=== PATIENT | female | born 1980 | race Caucasian/White ===

== ENCOUNTER 2019-03-17 17:03 | Emergency (ER) | payer OTHER ==
[~2019-03-17] VITALS: Ht 152.4 cm; Wt 75.7 kg
[2019-03-17 17:17] VITALS: BP 146/88
--- NOTE | 2019-03-17 17:25 | NUR ---
DR GALLARDO AWARE OF BLOOD SUGAR. OKAY TO WAIT IN LOBBY FOR BED.
[2019-03-17 18:07] LABS: HEMATOCRIT 34.9 % (36-48); HEMOGLOBIN 10.6 g/dL (12.0-16.0); MEAN CORPUSCULAR HEMOGLOBIN 20 pg (27-31); MEAN CORPUSCULAR HGB CONC 30 g/dL (33-37); MEAN CORPUSCULAR VOLUME 64.9 fL (80-94); PLATELET COUNT (AUTO) 334 K/uL (140-450); RED BLOOD CELL COUNT(AUTO) 5.38 MIL/uL (4.20-5.40); WHITE BLOOD COUNT (AUTO) 6.8 K/uL (4.8-10.8)
--- NOTE | 2019-03-17 18:35 | NUR ---
PATIENT AMBULATED TO BED 07
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
[2019-03-17 19:07] VITALS: BP 111/64
--- NOTE | 2019-03-17 19:08 | NUR ---
Pt report given to DAMION LIRA. Transfer of care at this time.
[2019-03-17 19:10] LABS: ALBUMIN 3.4 g/dL (3.4-5.0); ANION GAP 15.7 (8-16); ASPARTATE AMINOTRANSFERASE 204 U/L (15-37); CARBON DIOXIDE 24.2 mmol/L (21-32); CHLORIDE 99 mmol/L (98-107); CREATININE 0.9 mg/dL (0.6-1.3); GFR ARICAN-AMERICAN 89 mL/min (>90); POTASSIUM 3.9 mmol/L (3.5-5.1); SODIUM SERUM 135 mmol/L (136-145); TOTAL BILIRUBIN 0.3 mg/dL (0.0-1.0); UREA NITROGEN, BLOOD 8 mg/dL (7-18)
--- NOTE | 2019-03-17 19:10 | NUR ---
RECEIVED BEDSIDE REPORT FROM PANKAJ NUNEZ. ASSUMED CARE AT THIS TIME.
[2019-03-17 19:15] LABS: GLUCOSE 444 mg/dL (74-106)
[2019-03-17] MEDS ORDERED: INSULIN REGULAR, HUMAN 100 UNIT/ML VIAL IVP ONE (19:20)
[2019-03-17] MEDS ORDERED: NACL 0.9% 1,000 ML IV ONE (19:20)
[2019-03-17 19:43] LABS: ACETONE, SERUM NEGATIVE (NEGATIVE)
[2019-03-17 19:44] LABS: LYMPHOCYTES % (MANUAL) 38 % (20-46); MONOCYTES % (MANUAL) 3 % (5-12)
[2019-03-17 19:45] LABS: BASOPHILS % (MANUAL) 0 % (0-2); EOSINOPHILS % (MANUAL) 1 % (0-4)
--- NOTE | 2019-03-17 19:45 | NUR ---
PT LAYING IN BED UPRIGHT. BEDRAILX1 UP. DAUGHTER AT BEDSIDE. WILL CONTINUE TO MONITOR.
--- NOTE | 2019-03-17 20:56 | NUR ---
PT BLOOD SUGAR DECREASED TO 215. DR. ANTHONY MADE AWARE
--- NOTE | 2019-03-17 21:13 | NUR ---
Patient discharged with v/s stable. Written and verbal after care instructions given and explained. Patient alert, oriented and verbalized understanding of instructions. Ambulatory with steady gait. All questions addressed prior to discharge. ID band removed. Patient advised to follow up with PMD. Rx of metformin given. Patient educated on indication of medication including possible reaction and side effects. Opportunity to ask questions provided and answered.
[2019-03-17 22:51] LABS: APPEARANCE,URINE CLEAR (CLEAR); BILIRUBIN,URINE NEGATIVE (NEGATIVE); BLOOD, URINE NEGATIVE (NEGATIVE); COLOR,URINE YELLOW (YELLOW); LEUKOCYTE ESTERASE ,URINE 1+ (NEGATIVE); NITRITE, URINE NEGATIVE (NEGATIVE); UGLUCOSE 3+ (NEGATIVE)
[2019-03-17 23:21] LABS: RBC,URINE NONE SEEN /HPF (0-5)
--- NOTE | 2019-03-20 15:53 | NUR ---
LATE ENTRY- DR DANIELS AWARE OF POSITIVE URINE CULTURE. NO NEW ORDERS RECIEVED.
== END 2019-03-17 21:13 | disposition home or self-care (01) ==
LOC: MED 17:03
DX: E11.65 Type 2 diabetes mellitus with hyperglycemia (principal); E86.0 Dehydration; R35.0 Frequency of micturition
CPT/HCPCS: 36415; 80053; 81001; 82009; 82948; 83036; 85025; 87086; 87186; 96361; 96374; 99283; J1815; J7030

== ENCOUNTER 2020-02-08 09:05 | Emergency (ER) | payer OTHER ==
[~2020-02-08] VITALS: Ht 154.9 cm; Wt 77.6 kg
[2020-02-08 09:17] VITALS: BP 130/86
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
[2020-02-08] MEDS ORDERED: ACETAMINOPHEN 325 MG TAB PO ONE (10:00)
[2020-02-08 10:12] VITALS: BP 126/82
== END 2020-02-08 10:13 | disposition home or self-care (01) ==
LOC: MED 09:05
DX: R51.9 Headache, unspecified (principal); E11.9 Type 2 diabetes mellitus without complications; V49.9XXA Car occupant (driver) (passenger) injured in unspecified traffic accident, initial encounter; Y93.89 Activity, other specified; Y92.89 Other specified places as the place of occurrence of the external cause; Y99.8 Other external cause status
CPT/HCPCS: 99282

== ENCOUNTER 2020-12-08 13:37 | Emergency (ER) | payer OTHER ==
[~2020-12-08] VITALS: Ht 152.4 cm; Wt 73.9 kg
[2020-12-08 14:00] VITALS: BP 144/84
--- NOTE | 2020-12-08 14:45 | NUR ---
RECEIVED FROM [employer] STATING THAT SHE IS AWARE OF HAVING AN ELEVATED BLOOD SUGAR AFTER RECENTLY RUNNING OUT OF METFORMIN, SHE HAD NO REFILLS APPROVED AT THE PHARMACY SO SHE CALLED HER MD OFFICE, MD REFERRED TO ER FOR TREATMENT AND REFILL. PATIENT IS IN BED 12, PLACED ON MONITOR, IV ACCESS OBTAINED, LABS DRAWN. PATIENT IS AWAKE ALERT, RESP EVEN AND UNLABORED SKIN IS WARM AND DRY, DENIES PAIN DIZZINESS NAUSEA VOMITING OR DIARRHEA BED IS IN LOW LOCKED POSITION WITH ONE SIDERAIL UP FOR SAFETY.
[2020-12-08] MEDS ORDERED: metFORMIN 500 MG TAB PO STA (15:00)
[2020-12-08 15:09] LABS: BASOPHILS # (AUTO) 0.1 K/uL (0.00-0.22); BASOPHILS % (AUTO) 0.7 % (0.0-2.0); EOSINOPHILS # (AUTO) 0.1 K/uL (0-0.4); EOSINOPHILS % (AUTO) 2.1 % (0.0-4.0); HEMATOCRIT 33.8 % (36-48); HEMOGLOBIN 10.3 g/dL (12.0-16.0); LYMPHOCYTES # (AUTO) 2.5 K/uL (2.5-16.5); LYMPHOCYTES % (AUTO) 36.4 % (20.5-51.1); MEAN CORPUSCULAR HEMOGLOBIN 19 pg (27-31); MEAN CORPUSCULAR HGB CONC 31 g/dL (33-37); MEAN CORPUSCULAR VOLUME 61.8 fL (80-94); MONOCYTES # (AUTO) 0.5 K/uL (0.8-1.0); NEUTROPHILS # (AUTO) 3.7 K/uL (1.8-7.7); NEUTROPHILS % (AUTO) 53.8 % (42.2-75.2); PLATELET COUNT (AUTO) 314 K/uL (140-450); RED BLOOD CELL COUNT(AUTO) 5.46 MIL/uL (4.20-5.40); RED CELL DISTRIBUTION WIDTH 21.3 % (11.6-13.7); WHITE BLOOD COUNT (AUTO) 6.9 K/uL (4.8-10.8)
[2020-12-08 15:54] LABS: ALBUMIN 3.5 g/dL (3.4-5.0); ANION GAP 13.5 (8-16); CREATININE 0.7 mg/dL (0.6-1.3); POTASSIUM 3.5 mmol/L (3.5-5.1); TOTAL BILIRUBIN 0.4 mg/dL (0.0-1.0)
[2020-12-08] MEDS ORDERED: METF500T PO (16:02)
[2020-12-08 16:32] VITALS: BP 122/80
--- NOTE | 2020-12-08 16:33 | NUR ---
Patient discharged with v/s stable. Written and verbal after care instructions given HYPERGLYCEMIA and explained. Patient alert, oriented and verbalized understanding of instructions. Ambulatory with steady gait. All questions addressed prior to discharge. ID band removed. Patient advised to follow up with PMD. Rx of METFORMIN 500MG PO given. Patient educated on indication of medication including possible reaction and side effects. Opportunity to ask questions provided and answered.
[2020-12-08 16:48] LABS: APPEARANCE,URINE SL CLOUDY (CLEAR); BILIRUBIN,URINE NEGATIVE (NEGATIVE); BLOOD, URINE TRACE-I (NEGATIVE); COLOR,URINE YELLOW (YELLOW); LEUKOCYTE ESTERASE ,URINE TRACE (NEGATIVE); NITRITE, URINE NEGATIVE (NEGATIVE); PH,URINE 5.5 (5.0-9.0); UGLUCOSE 3+ (NEGATIVE)
== END 2020-12-08 16:33 | disposition home or self-care (01) ==
LOC: MED 13:37
DX: E11.65 Type 2 diabetes mellitus with hyperglycemia (principal); E86.0 Dehydration
CPT/HCPCS: 36415; 80053; 81001; 81025; 82009; 82948; 83036; 83605; 85025; 87086; 99283

== ENCOUNTER 2021-10-10 14:31 | Emergency (ER) | payer OTHER ==
[~2021-10-10] VITALS: Ht 152.4 cm; Wt 74.8 kg
[~2021-10-10 14:31] MED LIST: METF-346 PO
[2021-10-10 15:19] VITALS: BP 120/70
[2021-10-10] MEDS ORDERED: IBUP-2213 PO (15:56)
--- NOTE | 2021-10-10 16:30 | NUR ---
Patient discharged with v/s stable. Written and verbal after care instructions given and explained. Patient alert, oriented and verbalized understanding of instructions. Ambulatory with steady gait. All questions addressed prior to discharge. ID band removed. Patient advised to follow up with PMD. Rx of Ibuprofen given. Patient educated on indication of medication including possible reaction and side effects. Opportunity to ask questions provided and answered. Work note provided.
--- NOTE | 2021-10-10 16:30 | NUR ---
NO NURSING INTERVENTIONS PERFORMED
== END 2021-10-10 16:30 | disposition home or self-care (01) ==
LOC: MED 14:31
DX: M79.651 Pain in right thigh (principal); E11.9 Type 2 diabetes mellitus without complications; Z79.84 Long term (current) use of oral hypoglycemic drugs; Z79.899 Other long term (current) drug therapy
CPT/HCPCS: 99282

== ENCOUNTER 2022-12-20 13:36 | Inpatient (IN) | payer OTHER ==
[~2022-12-20] VITALS: Ht 152.4 cm; Wt 79.0 kg
[~2022-12-20 13:36] MED LIST changes: +IBUP-2213 PO
[2022-12-20 13:53] VITALS: BP 134/86; PULSE 87; RESP 20; TEMP 98.7; O2SAT 98
[2022-12-20 14:28] VITALS: O2SAT 98
[2022-12-20] MEDS ORDERED: DICYCLOMINE HCL LIQUID 20 MG, ALUMINUM HYD/MAG/SIMETHICONE 30 ML, LIDOCAINE VISCOUS 2% ... PO ONE ×3 (14:35)
[2022-12-20] MEDS ORDERED: ONDANSETRON 4 MG ODT PO ONE (14:35)
[2022-12-20] MEDS ORDERED: ALUMINUM HYD/MAG/SIMETHICONE 30 ML UDC ONE (14:41)
[2022-12-20] MEDS ORDERED: DICYCLOMINE HCL LIQUID 10 MG/5 ML UDC ONE (14:42)
[2022-12-20 14:57] LABS: HEMATOCRIT 35.7 % (36-48); HEMOGLOBIN 11.2 g/dL (12.0-16.0); MEAN CORPUSCULAR HEMOGLOBIN 21 pg (27-31); MEAN CORPUSCULAR HGB CONC 31 g/dL (33-37); MEAN CORPUSCULAR VOLUME 65.6 fL (80-94); PLATELET COUNT (AUTO) 385 K/uL (140-450); RED BLOOD CELL COUNT(AUTO) 5.43 MIL/uL (4.20-5.40); RED CELL DISTRIBUTION WIDTH 19.8 % (11.6-13.7); WHITE BLOOD COUNT (AUTO) 15.4 K/uL (4.8-10.8)
[2022-12-20 15:17] LABS: ALBUMIN 3.5 g/dL (3.4-5.0); ANION GAP 14.5 (8-16); CALCIUM 8.7 mg/dL (8.5-10.1); CARBON DIOXIDE 27.3 mmol/L (21-32); CREATININE 0.9 mg/dL (0.6-1.3); POTASSIUM 3.8 mmol/L (3.5-5.1); TOTAL BILIRUBIN 0.6 mg/dL (0.0-1.0); TOTAL PROTEIN, SERUM 7.8 g/dL (6.4-8.2)
[2022-12-20 15:23] LABS: BASOPHILS % (MANUAL) 0 % (0-2); EOSINOPHILS % (MANUAL) 0 % (0-4); LYMPHOCYTES % (MANUAL) 8 % (20-46); MONOCYTES % (MANUAL) 2 % (5-12)
[2022-12-20 15:24] LABS: HYPOCHROMASIA 1+
[2022-12-20 16:29] VITALS: O2SAT 98
[2022-12-20] MEDS ORDERED: MORPHINE SULFATE 4 MG/ML SYR IM ONE (17:15)
[2022-12-20] MEDS ORDERED: HYDROcodone/APAP 5/325 MG 1 TAB TAB PO ONE (17:15)
[2022-12-20] MEDS ORDERED: ACET-10509 PO (17:38)
[2022-12-20] MEDS ORDERED: FAMO-90 PO (17:38)
[2022-12-20] MEDS ORDERED: ONDA-188 PO (17:38)
[2022-12-20] MEDS ORDERED: IBUP-1842 PO (17:38)
[2022-12-20] MEDS ORDERED: metroNIDAZOLE 500 MG/NS PREMIX 100 ML IV ONE (18:20)
[2022-12-20] MEDS ORDERED: NACL 0.9% 1,000 ML IV ONE ×2 (18:25)
[2022-12-20 18:44] VITALS: O2SAT 98
[2022-12-20] MEDS ORDERED: cefTRIAXone 1,000 MG VIAL ONE (18:55)
[2022-12-20] MEDS ORDERED: ATOR20TA40 PO (19:03)
[2022-12-20 19:18] LABS: LACTIC ACID 1.9 mmol/L (0.4-2.0)
[2022-12-20] MEDS ORDERED: KCL 20 MEQ IN 100 mL PREMIX 200 ML IV PRN (21:20)
[2022-12-20] MEDS ORDERED: HYDROcodone/APAP 5/325 MG 1 TAB TAB PO PRN (21:20)
[2022-12-20] MEDS ORDERED: MAG SULF 2000 MG/WATER PREMIX 50 ML IV PRN (21:20)
[2022-12-20] MEDS ORDERED: ACETAMINOPHEN 325 MG TAB PO PRN (21:20)
[2022-12-20] MEDS: MORPHINE SULFATE 4 MG/ML SYR IVP PRN (22:55)
[2022-12-20] MEDS: NACL 0.9% 1,000 ML IV SCH (22:57)
[2022-12-21] MEDS ORDERED: PIPERACILLIN/TAZOBACTAM 3.375 GM VIAL IV ONE ×4 (00:45→17:58)
[2022-12-21 01:00] VITALS: O2SAT 99
[2022-12-21] MEDS: PIPERACILLIN/TAZOBACTAM 3.375 GM in DEXTROSE 5% 50 ML IV SCH ×4 (01:00→18:03)
[2022-12-21] MEDS ORDERED: METF-346 PO (04:58)
[2022-12-21] MEDS ORDERED: GLIP10TE PO (04:58)
[2022-12-21 07:05] LABS: ALBUMIN 2.9 g/dL (3.4-5.0); ANION GAP 12.4 (8-16); CALCIUM 7.7 mg/dL (8.5-10.1); CREATININE 0.7 mg/dL (0.6-1.3); MAGNESIUM 1.6 mg/dL (1.8-2.4); POTASSIUM 3.4 mmol/L (3.5-5.1); TOTAL BILIRUBIN 0.8 mg/dL (0.0-1.0); TOTAL PROTEIN, SERUM 6.9 g/dL (6.4-8.2)
[2022-12-21] MEDS: POTASSIUM CHLORIDE 10 MEQ TABER PO PRN (08:07)
[2022-12-21] MEDS: MAGNESIUM OXIDE 400 MG TAB PO PRN (08:07)
[2022-12-21] MEDS: NACL 0.9% 1,000 ML IV SCH ×2 (12:12→22:58)
[2022-12-21 13:38] LABS: BASOPHILS # (AUTO) 0.1 K/uL (0.00-0.22); BASOPHILS % (AUTO) 0.7 % (0.0-2.0); EOSINOPHILS % (AUTO) 0.2 % (0.0-4.0); HEMATOCRIT 33.7 % (36-48); HEMOGLOBIN 10.3 g/dL (12.0-16.0); LYMPHOCYTES # (AUTO) 1.6 K/uL (2.5-16.5); LYMPHOCYTES % (AUTO) 8.9 % (20.5-51.1); MEAN CORPUSCULAR HEMOGLOBIN 20 pg (27-31); MEAN CORPUSCULAR HGB CONC 31 g/dL (33-37); MEAN CORPUSCULAR VOLUME 66.5 fL (80-94); MONOCYTES # (AUTO) 1.2 K/uL (0.8-1.0); MONOCYTES % (AUTO) 6.9 % (1.7-9.3); NEUTROPHILS # (AUTO) 14.9 K/uL (1.8-7.7); NEUTROPHILS % (AUTO) 83.3 % (42.2-75.2); PLATELET COUNT (AUTO) 362 K/uL (140-450); RED BLOOD CELL COUNT(AUTO) 5.06 MIL/uL (4.20-5.40); RED CELL DISTRIBUTION WIDTH 19.5 % (11.6-13.7); WHITE BLOOD COUNT (AUTO) 17.9 K/uL (4.8-10.8)
[2022-12-21 21:25] VITALS: BP 130/73; PULSE 97; RESP 18; TEMP 98.9; O2SAT 96; O2SAT 97
[2022-12-22] MEDS ORDERED: PIPERACILLIN/TAZOBACTAM 3.375 GM VIAL IV ONE ×2 (00:43→05:23)
[2022-12-22] MEDS: PIPERACILLIN/TAZOBACTAM 3.375 GM in DEXTROSE 5% 50 ML IV SCH ×5 (00:50→23:57)
[2022-12-22 04:00] VITALS: BP 121/66; RESP 18; TEMP 98.2; O2SAT 97
[2022-12-22] MEDS: MAGNESIUM OXIDE 400 MG TAB PO PRN (04:03)
[2022-12-22] MEDS: POTASSIUM CHLORIDE 10 MEQ TABER PO PRN (04:04)
[2022-12-22] MEDS: NACL 0.9% 1,000 ML IV SCH ×2 (05:14→21:30)
[2022-12-22 06:41] LABS: BASOPHILS % (AUTO) 0.3 % (0.0-2.0); EOSINOPHILS # (AUTO) 0.1 K/uL (0-0.4); EOSINOPHILS % (AUTO) 0.4 % (0.0-4.0); HEMATOCRIT 31.1 % (36-48); HEMOGLOBIN 9.8 g/dL (12.0-16.0); LYMPHOCYTES # (AUTO) 2.1 K/uL (2.5-16.5); LYMPHOCYTES % (AUTO) 12.6 % (20.5-51.1); MEAN CORPUSCULAR HEMOGLOBIN 21 pg (27-31); MEAN CORPUSCULAR HGB CONC 32 g/dL (33-37); MEAN CORPUSCULAR VOLUME 65.2 fL (80-94); MONOCYTES # (AUTO) 1.1 K/uL (0.8-1.0); MONOCYTES % (AUTO) 6.7 % (1.7-9.3); NEUTROPHILS # (AUTO) 13.3 K/uL (1.8-7.7); PLATELET COUNT (AUTO) 347 K/uL (140-450); RED BLOOD CELL COUNT(AUTO) 4.78 MIL/uL (4.20-5.40); WHITE BLOOD COUNT (AUTO) 16.6 K/uL (4.8-10.8)
[2022-12-22 07:06] LABS: ALBUMIN 2.6 g/dL (3.4-5.0); ANION GAP 12.4 (8-16); CALCIUM 8.2 mg/dL (8.5-10.1); CARBON DIOXIDE 23.6 mmol/L (21-32); CREATININE 0.6 mg/dL (0.6-1.3); MAGNESIUM 1.9 mg/dL (1.8-2.4); TOTAL BILIRUBIN 0.9 mg/dL (0.0-1.0); TOTAL PROTEIN, SERUM 7.1 g/dL (6.4-8.2)
[2022-12-22 08:00] VITALS: BP 133/72; PULSE 92; RESP 16; TEMP 97.8; O2SAT 98
[2022-12-22] MEDS ORDERED: LIDOCAINE/EPI MPF 1%1:200000 30 ML VIAL INJ ONE (12:07)
[2022-12-22] MEDS ORDERED: fentaNYL citrate 0.05 MG/ML VIAL ONE (12:09)
[2022-12-22] MEDS ORDERED: SEVOFLURANE 250 ML BTL INH ONE (12:09)
[2022-12-22] MEDS ORDERED: ROCURONIUM 50 MG/5 ML VIAL IV ONE (12:53)
[2022-12-22] MEDS ORDERED: PROPOFOL 200 MG/20 ML VIAL IV ONE (12:53)
[2022-12-22] MEDS ORDERED: SUCCINYLCHOLINE CHLORIDE 200 MG/10 ML VIAL IVP ONE (12:54)
[2022-12-22] MEDS ORDERED: ONDANSETRON 4 MG/2 ML VIAL ONE (12:55)
[2022-12-22] MEDS ORDERED: KETOROLAC 30 MG/ML VIAL ONE (12:55)
[2022-12-22] MEDS ORDERED: NEOSTIGMINE 1:1000 10 MG/10 ML VIAL ONE (13:24)
[2022-12-22] MEDS ORDERED: GLYCOPYRROLATE 0.2 MG/ML VIAL ONE ×5 (13:24)
[2022-12-22] MEDS: LACTATED RINGERS 1,000 ML IV SCH ×2 (13:40→23:18)
[2022-12-22] MEDS ORDERED: LABETALOL 20 MG/4 ML VIAL IVP PRN (13:40)
[2022-12-22] MEDS ORDERED: METOCLOPRAMIDE 10 MG/2 ML INJ VIAL IVP PRN (13:40)
[2022-12-22] MEDS ORDERED: hydrALAZINE 20 MG/ML VIAL IVP PRN (13:41)
[2022-12-22] MEDS: HYDROmorphone 1 MG/ML AMP IVP PRN ×3 (13:55→14:25)
[2022-12-22] MEDS ORDERED: HYDROmorphone PFS 2 MG/ML SYR ONE (14:01)
[2022-12-22 14:33] VITALS: PULSE 92; RESP 16; O2SAT 98
[2022-12-22 16:00] VITALS: BP 94/54; PULSE 98; RESP 18; TEMP 97.9; O2SAT 92
[2022-12-23] VITALS: BP 110/55; PULSE 88; RESP 18; TEMP 97.5; O2SAT 95
[2022-12-23] MEDS: PIPERACILLIN/TAZOBACTAM 3.375 GM in DEXTROSE 5% 50 ML IV SCH ×4 (06:24→23:30)
[2022-12-23 07:10] LABS: ANION GAP 12.2 (8-16); CALCIUM 7.6 mg/dL (8.5-10.1); CARBON DIOXIDE 22.3 mmol/L (21-32); CREATININE 0.5 mg/dL (0.6-1.3); POTASSIUM 3.5 mmol/L (3.5-5.1)
[2022-12-23 07:44] LABS: ALBUMIN 2.1 g/dL (3.4-5.0); CALCIUM 7.6 mg/dL (8.5-10.1); CARBON DIOXIDE 21.4 mmol/L (21-32); CREATININE 0.6 mg/dL (0.6-1.3); POTASSIUM 3.4 mmol/L (3.5-5.1); TOTAL BILIRUBIN 0.5 mg/dL (0.0-1.0); TOTAL PROTEIN, SERUM 6.3 g/dL (6.4-8.2)
[2022-12-23 08:00] VITALS: BP 117/69; PULSE 94; RESP 16; TEMP 97.2; O2SAT 96
[2022-12-23] MEDS: POTASSIUM CHLORIDE 10 MEQ TABER PO PRN (09:33)
[2022-12-23 10:50] LABS: BASOPHILS # (AUTO) 0.1 K/uL (0.00-0.22); BASOPHILS % (AUTO) 1.2 % (0.0-2.0); EOSINOPHILS # (AUTO) 0.1 K/uL (0-0.4); EOSINOPHILS % (AUTO) 1.3 % (0.0-4.0); HEMOGLOBIN 8.6 g/dL (12.0-16.0); LYMPHOCYTES # (AUTO) 1.6 K/uL (2.5-16.5); LYMPHOCYTES % (AUTO) 17.3 % (20.5-51.1); MEAN CORPUSCULAR HEMOGLOBIN 21 pg (27-31); MEAN CORPUSCULAR HGB CONC 31 g/dL (33-37); MONOCYTES # (AUTO) 0.6 K/uL (0.8-1.0); MONOCYTES % (AUTO) 6.2 % (1.7-9.3); NEUTROPHILS # (AUTO) 6.9 K/uL (1.8-7.7); PLATELET COUNT (AUTO) 330 K/uL (140-450); RED BLOOD CELL COUNT(AUTO) 4.18 MIL/uL (4.20-5.40); WHITE BLOOD COUNT (AUTO) 9.3 K/uL (4.8-10.8)
[2022-12-23] MEDS: NACL 0.9% 1,000 ML IV SCH (12:27)
[2022-12-23] MEDS: MORPHINE SULFATE 4 MG/ML SYR IVP PRN (12:32)
[2022-12-23] MEDS ORDERED: oxyCODONE/APAP 5/325 MG 1 TAB TAB PO PRN (14:10)
[2022-12-23] MEDS ORDERED: HYDROcodone/APAP 10/325 MG 1 TAB TAB PO PRN (14:10)
[2022-12-23 14:50] VITALS: O2SAT 95
[2022-12-23 16:00] VITALS: BP 111/66; PULSE 92; RESP 16; TEMP 97.7; O2SAT 96
[2022-12-23 20:00] VITALS: BP 128/80; PULSE 94; RESP 18; TEMP 97.9; O2SAT 94
[2022-12-24] MEDS: NACL 0.9% 1,000 ML IV SCH ×2 (06:27→13:42)
[2022-12-24] MEDS: PIPERACILLIN/TAZOBACTAM 3.375 GM in DEXTROSE 5% 50 ML IV SCH ×3 (06:28→18:00)
[2022-12-24 06:45] LABS: BASOPHILS % (AUTO) 0.6 % (0.0-2.0); EOSINOPHILS # (AUTO) 0.2 K/uL (0-0.4); EOSINOPHILS % (AUTO) 3.3 % (0.0-4.0); HEMOGLOBIN 8.5 g/dL (12.0-16.0); LYMPHOCYTES # (AUTO) 2.4 K/uL (2.5-16.5); LYMPHOCYTES % (AUTO) 38.7 % (20.5-51.1); MEAN CORPUSCULAR HEMOGLOBIN 21 pg (27-31); MEAN CORPUSCULAR HGB CONC 32 g/dL (33-37); MONOCYTES # (AUTO) 0.3 K/uL (0.8-1.0); MONOCYTES % (AUTO) 5.6 % (1.7-9.3); NEUTROPHILS # (AUTO) 3.2 K/uL (1.8-7.7); NEUTROPHILS % (AUTO) 51.8 % (42.2-75.2); PLATELET COUNT (AUTO) 299 K/uL (140-450); RED BLOOD CELL COUNT(AUTO) 4.09 MIL/uL (4.20-5.40); RED CELL DISTRIBUTION WIDTH 19.8 % (11.6-13.7); WHITE BLOOD COUNT (AUTO) 6.1 K/uL (4.8-10.8)
[2022-12-24 07:13] LABS: ALBUMIN 2.1 g/dL (3.4-5.0); ANION GAP 10.8 (8-16); CALCIUM 7.8 mg/dL (8.5-10.1); CARBON DIOXIDE 25.6 mmol/L (21-32); CREATININE 0.6 mg/dL (0.6-1.3); MAGNESIUM 1.9 mg/dL (1.8-2.4); POTASSIUM 3.4 mmol/L (3.5-5.1); TOTAL BILIRUBIN 0.3 mg/dL (0.0-1.0); TOTAL PROTEIN, SERUM 6.2 g/dL (6.4-8.2)
[2022-12-24 08:00] VITALS: BP 124/71; PULSE 85; RESP 18; TEMP 97.2; O2SAT 92
[2022-12-24] MEDS ORDERED: ENOXAPARIN 40 MG/0.4 ML SYR SUBQ SCH (09:00)
[2022-12-24] MEDS ORDERED: ACET-9535 PO (10:50)
[2022-12-24] MEDS ORDERED: AMOX-1230 PO (12:16)
[2022-12-24 16:00] VITALS: BP 138/76; PULSE 93; RESP 18; TEMP 97.7; O2SAT 100
[2022-12-24 16:22] VITALS: BP 138/76; PULSE 93; RESP 18; TEMP 97.7
== END 2022-12-24 18:35 | disposition home or self-care (01) | DRG 710 ==
LOC: MED 13:36 → MMU 21:24 → MTU 12-21 20:48
PROVIDERS: ADMIT Internal Medicine; ATTEND Internal Medicine
PROC: BF121ZZ Fluoroscopy of Gallbladder using Low Osmolar Contrast (ICD-10-PCS; 2022-12-22)
PROC: 0FN44ZZ Release Gallbladder, Percutaneous Endoscopic Approach (ICD-10-PCS; 2022-12-22)
PROC: 0F9440Z Drainage of Gallbladder with Drainage Device, Percutaneous Endoscopic Approach (ICD-10-PCS; principal; 2022-12-22 11:45)
DX: A41.9 Sepsis, unspecified organism (principal); K82.A1 Gangrene of gallbladder in cholecystitis; K80.12 Calculus of gallbladder with acute and chronic cholecystitis without obstruction; K76.0 Fatty (change of) liver, not elsewhere classified; R16.0 Hepatomegaly, not elsewhere classified; E66.9 Obesity, unspecified; K57.30 Diverticulosis of large intestine without perforation or abscess without bleeding; E11.9 Type 2 diabetes mellitus without complications; Z68.34 Body mass index [BMI] 34.0-34.9, adult; Z71.3 Dietary counseling and surveillance; Z79.899 Other long term (current) drug therapy
CPT/HCPCS: 36415; 74018; 76705; 80048; 80053; 83605; 83690; 83735; 84703; 85025; 87040; 87070; 87075; 87081; 87205; 94010; 96365; 96367; 99285; J0330; J0696; J1170; J1650; J1885; J2001; J2270; J2405; J2543; J2704; J2710; J2765; J3010; J3490; J7030; J7060; Q0092; Q0162; Q9965